=== PATIENT | female | born 1980 | race Caucasian/White ===

== ENCOUNTER 2016-11-08 00:06 | Emergency (ER) | payer MEDICAID ==
[2012-07-23 06:48] VITALS: BMI 27.3
== END 2016-11-08 01:16 | disposition home or self-care (01) ==
LOC: D.ER 00:06
DX: R07.9 Chest pain, unspecified (principal); S29.011A Strain of muscle and tendon of front wall of thorax, initial encounter; X58.XXXA Exposure to other specified factors, initial encounter

== ENCOUNTER 2016-11-08 16:02 | Emergency (ER) | payer MEDICAID ==
[2012-07-23 06:48] VITALS: BMI 27.3
== END 2016-11-08 16:44 | disposition home or self-care (01) ==
LOC: D.ER 16:02
DX: Z04.9 Encounter for examination and observation for unspecified reason (principal)

== ENCOUNTER 2018-01-22 07:00 | Day surgery (SDC) | payer MEDICAID ==
[2018-01-21 13:27] LABS: BASOPHILS 0.3 % (0-2); EOSINOPHILS 13.9 % (0-7); HEMATOCRIT 37.7 % (36.0-48.0); HEMOGLOBIN 12.6 g/dL (12-16); IMMATURE GRANULOCYTES 0.2 % (0-5); LYMPHOCYTES 28.4 % (15-50); MCH 33.1 pg (26.0-34.0); MCHC 33.4 g/dL (31.0-37.0); MEAN PLATELET VOLUME 10.9 fL (7.4-10.4); MONOCYTES 5.2 % (2-11); PLATELET COUNT 150 10x3/uL (130-400); RBC 3.81 10x6/uL (4.00-5.40); RDW 11.8 % (11.5-14.5); WBC 8.7 10x3/uL (4.8-10.8)
[~2018-01-22] VITALS: Ht 157.5 cm; Wt 54.0 kg
--- NOTE | ~2018-01-22 | OP ---
PATIENT NAME: RAUL BENTLEY MEDICAL RECORD: [id number] :80 LOCATION:D.OPS ADMISSION DATE: SURGEON: GINETTE SUMNER MD DATE OF OPERATION: 01/22/2018 PREOPERATIVE DIAGNOSIS: Cystic-appearing endometrium on ultrasound. POSTOPERATIVE DIAGNOSIS: Endometrial polyps. PROCEDURES: Hysteroscopy, dilation and curettage. SURGEON: Ginette Sumner MD ANESTHESIA: General. INTRAVENOUS FLUIDS: Per anesthesia record. HYSTEROSCOPIC FLUID LOSS: Approximately 100 cc of 0.9 normal saline. SPECIMENS: Endometrial curettings. FINDINGS: 1. Grossly normal-appearing endometrial cavity. 2. Several small anterior endometrial polyps. 3. Bilateral ostia identified. COMPLICATIONS: None apparent. DESCRIPTION OF THE PROCEDURE: The patient was taken to the operating room where general anesthesia was achieved without difficulty. The patient was prepped and draped in normal sterile fashion in dorsal lithotomy position in the [facility]. Following prep and drape, the bladder was drained of approximately 10 cc of clear yellow urine. A Graves speculum was then placed in the vagina. The cervix was identified and grasped on its anterior lip with a single tooth tenaculum. At this point, the uterus was sounded approximately 8.5 cm, dilation to approximately 6 mm was then performed using the Erin dilators. At this point, hysteroscope was introduced into the cervix. Survey of the endometrial canal was then performed. Gentle curettage was then performed with the gross retrieval of identified polyps. Minimal bleeding was noted from the cervical os at the end of the procedure. Tenaculum was then removed. The patient tolerated the procedure well, was transferred to postanesthesia recovery stable without incident. TRANSINT:[id number] Voice Confirmation ID: [id number] DOCUMENT ID: [id number] OPERATIVE REPORT [id number] RAUL BENTLEY GINETTE SUMNER MD at 1259 CC: [id number] DICTATION DATE: 02/01/18 08 MEDICAL HOUSEKEEPER: 02/01/18 1001 [facility] 01/22/18 [place] [id number]
[~2018-01-22 07:00] MED LIST: CELEXA40 MG PO; EZFE 200200 MG PO; LEVOTHYROXINE50 MCG PO; TOPAMAX50 MG PO; TRAZODONE HCL50 MG PO; TUMS500 MG PO
[2018-01-22 07:44] LABS: HCG URINE NEGATIVE (NEGATIVE)
[2018-01-22 08:03] VITALS: BP 82/43; BMI 21.8
[2018-01-22 10:08] VITALS: Ht 157.5 cm; Wt 54.0 kg
== END 2018-01-22 13:00 | disposition home or self-care (01) ==
LOC: D.OPS 07:00 → D.PAN 07:30 → D.OPS 09:00
PROVIDERS: Obstetrics & Gynecology
DX: N84.0 Polyp of corpus uteri (principal); Z01.812 Encounter for preprocedural laboratory examination

== ENCOUNTER 2018-12-16 22:08 | Emergency (ER) | payer MEDICAID ==
[~2018-12-16] VITALS: Ht 157.5 cm; Wt 45.5 kg
[2018-12-16 22:11] VITALS: Ht 157.5 cm; Wt 45.5 kg
[2018-12-16] MEDS ORDERED: ZANAFLEX4 MG PO (22:12)
[2018-12-16] MEDS ORDERED: ULTRAM50 MG PO (22:12)
[2018-12-16 23:44] LABS: APPEARANCE CLEAR (CLEAR); BILIRUBIN NEGATIVE (NEGATIVE); COLOR YELLOW (YELLOW); GLUCOSE NEGATIVE (NEGATIVE); KETONE NEGATIVE (NEGATIVE); NITRITE NEGATIVE (NEGATIVE); PROTEIN NEGATIVE (NEGATIVE); UROBILINOGEN NORMAL (NORMAL)
[2018-12-16 23:45] LABS: HCG URINE NEGATIVE (NEGATIVE)
[2018-12-16 23:48] LABS: UDS - AMPHET NEGATIVE QUAL (NEGATIVE); UDS - BARB NEGATIVE QUAL (NEGATIVE); UDS - BENZO NEGATIVE QUAL (NEGATIVE); UDS - COCAINE NEGATIVE QUAL (NEGATIVE); UDS - OPIATE NEGATIVE QUAL (NEGATIVE); UDS - PCP NEGATIVE QUAL (NEGATIVE); UDS - THC NEGATIVE QUAL (NEGATIVE)
[2018-12-16 23:57] LABS: HEMATOCRIT 41.1 % (36.0-48.0); MCH 32.6 pg (26.0-34.0); MCHC 34.1 g/dL (31.0-37.0); MCV 95.8 fL (80.0-100.0); MEAN PLATELET VOLUME 10.3 fL (7.4-10.4); NEUTROPHILS 69.5 % (40-80); RBC 4.29 10x6/uL (4.00-5.40); RDW 12.7 % (11.5-14.5); WBC 9.7 10x3/uL (4.8-10.8)
[2018-12-16 23:58] LABS: PLATELET COUNT 196 10x3/uL (130-400)
[2018-12-17 00:08] LABS: APTT 38.8 SECONDS (22.8-39.4); INR 1.06 (0.85-1.17); PROTIME 13.3 SECONDS (11.6-15.0)
[2018-12-17 00:20] LABS: ALBUMIN 4.1 g/dL (3.4-5.0); ALKALINE PHOSPHATASE 45 U/L (46-116); ALT (SGPT) 30 U/L (10-68); BILIRUBIN - TOTAL 0.38 mg/dL (0.2-1.3); CALC OSMOLALITY 281 mosm/kg (275-300); CALCIUM 10.2 mg/dL (8.5-10.1); CARBON DIOXIDE 20.3 mmol/L (21.0-32.0); CHLORIDE - SERUM 107 mmol/L (98-107); CREATININE - SERUM 0.9 mg/dL (0.6-1.3); GLUCOSE 97 mg/dL (74-106); POTASSIUM - SERUM 3.7 mmol/L (3.5-5.1); PROTEIN - SERUM 7.6 g/dL (6.4-8.2); SODIUM 140 mmol/L (136-145); UREA NITROGEN 20 mg/dL (7-18); eGFR NON AFRICAN AMERICAN 74 mL/min (90-120)
[2018-12-17 00:23] LABS: CKMB 0.2 U/L (0.0-3.6); CREATINE KINASE 17 UL (21-215); MAGNESIUM - SERUM 1.9 mg/dL (1.8-2.4)
[2018-12-17 00:27] LABS: TROPONIN-I < 0.017 ng/mL (0.000-0.060)
[2018-12-17 01:54] VITALS: BP 119/69
== END 2018-12-17 01:55 | disposition home or self-care (01) ==
LOC: D.ER 22:08
PROVIDERS: Emergency Medicine
DX: E86.0 Dehydration (principal); F41.9 Anxiety disorder, unspecified